=== PATIENT | male | born 1955 | race Hispanic/Latino ===

== ENCOUNTER 2017-04-27 12:22 | Emergency (ER) | payer MEDICARE, OTHER ==
[2017-04-27 12:22] VITALS: BMI 22.0
[2017-04-27 12:49] VITALS: TEMP 97.9
--- NOTE | 2017-04-27 13:41 | C.PDOC ---
History Of Present Illness 62 year old male presents to the ED requesting heroin detox. Patient states he has been using heroin intravenously for the past 40 years. He states his last use was at around 0730 today. Patient denies suicidal/homicidal ideation and has no physical complaints at this time. (Zoya Bautista) History Per: Patient History/Exam Limitations: no limitations Onset/Duration Of Symptoms: Hrs Current Symptoms Are (Timing): Still Present Suicide/Self Injury Attempted (Context): None Modifying Factor(s): Narcotics (heroin ) Associated Symptoms: denies: Suicidal Thoughts, Suicidal Plan Involuntary Hold By: None Recent travel outside of the [place]: No Additional History Per: Patient Time Seen by Provider: 04/27/17 13:30 Chief Complaint (Nursing): Substance Abuse Past Medical History Reviewed: Historical Data, Nursing Documentation, Vital Signs - Medical History PMH: HIV Surgical History: No Surg Hx Family History: States: Unknown Family Hx - Social History Hx Tobacco Use: Yes Hx Alcohol Use: No Hx Substance Use: Yes - Immunization History Hx Tetanus Toxoid Vaccination: No Hx Influenza Vaccination: Yes Hx Pneumococcal Vaccination: No Vital Signs: Last Vital Signs Temp 97.9 F 04/27/17 12:45 Pulse 85 04/27/17 14:33 Resp 16 04/27/17 14:33 BP 125/68 04/27/17 14:33 Pulse Ox 97 04/27/17 15:46 Review Of Systems Psych: Positive for: Other (request for heroin detox ). Negative for: Suicidal ideation Physical Exam - Physical Exam Appears: Non-toxic, No Acute Distress Skin: Normal Color, Warm, Dry, Other (track berrios to bilateral upper extremities ) Head: Atraumatic, Normacephalic Eye(s): bilateral: Normal Inspection Oral Mucosa: Moist Neck: Supple Chest: Symmetrical, No Deformity, No Tenderness Cardiovascular: Rhythm Regular Respiratory: Normal Breath Sounds, No Accessory Muscle Use Extremity: Normal ROM, No Tenderness, Capillary Refill (less than 2 seconds ), No Swelling Pulses: Left Radial: Normal, Right Radial: Normal Neurological/Psych: Oriented x3, Normal Speech, Normal Cognition Gait: Steady ED Course And Treatment O2 Sat by Pulse Oximetry: 97 (on RA) Pulse Ox Interpretation: Normal Progress Note: Patient was evaluated by workers' compensation claims supervisor at bedside. Case discussed with Dr. Sneed, who states that patient does not meet admission criteria. Patient is stable for discharge and is advised to follow up with outpatient facilities for further evaluation. Disposition - Disposition Disposition Time: 13:40 - Disposition Disposition: HOME/ ROUTINE Condition: STABLE Additional Instructions: Follow up with outpt detox programs. Return to ER if symptoms persist or worsen. Instructions: Opioid Dependence (ED) Forms: [employer] (Thai) - Clinical Impression Clinical Impression: Opioid abuse - PA / [employer] DEVELOPER / Resident Statement MD/DO has reviewed & agrees with the documentation as recorded. - Scribe Statement The provider has reviewed the documentation as recorded by the Scribe (Susan Zepeda) - Scribe Statement All medical record entries made by the Scribe were at my direction and personally dictated by me. I have reviewed the chart and agree that the record accurately reflects my personal performance of the history, physical exam, medical decision making, and the department course for this patient. I have also personally directed, reviewed, and agree with the discharge instructions and disposition. (Zoya Bautista)
[2017-04-27 14:34] VITALS: BP 125/68; PULSE 85; RESP 16
[2017-04-27 15:40] VITALS: O2SAT 97
== END 2017-04-27 14:33 | disposition home or self-care (01) ==
LOC: C.ER 12:22
DX: F11.10 Opioid abuse, uncomplicated (principal)

== ENCOUNTER 2018-11-11 17:56 | Emergency (ER) | payer MEDICARE ==
[~2018-11-11 17:56] MED LIST: Calcium Gluconate 4.65 mEq/10 ml Inj ONE; Sodium Bicarbonate (8.4%) 50 Meq Syringe ONE
[2018-11-11 17:59] VITALS: BMI 20.3
--- NOTE | 2018-11-11 18:30 | C.PDOC ---
History Of Present Illness Patient brought in by EMS for cardiac arrest. Roommate states that he heard a "thump" in the home, found patient slumped over in the bathroom with agonal breathing. He did not have his phone on him, so he asked a neighbor to call 911. EMS arrived to find the patient in asystole. Rhythm ranged from asystole, to PEA, to vfib, and back to asystole. Patient given epi x7, bicarb x1, amiodarone, and was defibrillated twice during period of vfib. Pt was intubated and during intubation, medics pulled out a large blood clot from trachea. Pt never achieved ROSC in the field. 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 Patient with known history of HIV and heroin abuse. Roommate notes that he had complained about "not feeling well" with no specific symptoms for the past day or two but refused to seek medical care. Chief Complaint (Nursing): Cardiac Arrest History Per: EMS Reason For Code Blue: Full Arrest Circumstances: Brought To ED By EMS Arrest Witnessed By: Other (neighbor) Medications Given Prior To MD Arrival: Yes: Epinephrine, Sodium Bicarb, Other (amiodarone) Past Medical History Reviewed: Historical Data, Nursing Documentation, Vital Signs - Medical History PMH: HIV Family History: States: Unknown Family Hx - Social History Hx Tobacco Use: Yes Hx Alcohol Use: No Hx Substance Use: Yes (heroin abuse) - Immunization History Hx Tetanus Toxoid Vaccination: No Hx Influenza Vaccination: Yes Hx Pneumococcal Vaccination: No Review Of Systems Review Of Systems: ROS cannot be obtained secondary to pt's inabilty to answer questions. Physical Exam - Physical Exam Appears: Other (unresponsive ) Skin: Pale, Other (cool) Eye(s): bilateral: Other (fixed and dilated ) Cardiovascular: Other (no cardiac activity ) Respiratory: Other (no spontaneous respirations ) Neurological/Psych: No Response To Commands Pain Response: No Response To Pain Medical Decision Making Medical Decision Making: Patient was seen immediately upon arrival due to critical condition. Placed on continuous cardiac monitoring. Rhythm ranged from asystole to PEA. Total of epi x4, calcium x1, bicarb x1 given while continuing adequate chest compressions. Despite this, patient did not achieve ROSC. Bedside cardiac echo done showing no cardiac activity. Time of called at 181. Disposition - Disposition Disposition: WITH WITHOUT AUTOPSY Disposition Time: 18:11 Condition: Forms: [employer] (Kittitian) - Clinical Impression Clinical Impression: Cardiac arrest Critical Care Time - Critical Care Note Total Time (in mins): 30 Documented critical care: time excludes all time spent performing seperately billable procedures. - Scribe Statement The provider has reviewed the documentation as recorded by the Scribe Gonzalez Do Provider Attestation: All medical record entries made by the Scribe were at my direction and personally dictated by me. I have reviewed the chart and agree that the record accurately reflects my personal performance of the history, physical exam, medical decision making, and the department course for this patient. I have also personally directed, reviewed, and agree with the discharge instructions and disposition.
== END 2018-11-11 21:50 ==
LOC: C.ER 17:56
DX: I46.9 Cardiac arrest, cause unspecified (principal)
CPT/HCPCS: 99285; J0171; J0610